=== PATIENT | male | born 1995 | race Hispanic/Latino ===

== ENCOUNTER 2018-01-14 21:17 | Emergency (ER) | payer OTHER ==
[2018-01-14] MEDS ORDERED: cefTRIAXone\\ROCEPHIN 500 MG VIAL ONE (21:31)
[2018-01-14] MEDS ORDERED: Azithromycin 250 MG TAB ONE (21:31)
[2018-01-18 04:22] LABS: Chlamydia by PCR Not Detected (NotDetected); GC by PCR DETECTED (NotDetected)
== END 2018-01-14 21:59 | disposition home or self-care (01) ==
LOC: BURERS 21:17
DX: N34.1 Nonspecific urethritis (principal); F17.210 Nicotine dependence, cigarettes, uncomplicated; E11.9 Type 2 diabetes mellitus without complications; Z79.84 Long term (current) use of oral hypoglycemic drugs
CPT/HCPCS: 87491; 87591; 96372; J0696